=== PATIENT | male | born 1960 | race Two or more races ===

== ENCOUNTER 2024-05-03 13:20 | Emergency (ER) | payer OTHER ==
[~2024-05-03] VITALS: Ht 167.6 cm; Wt 79.0 kg
[~2024-05-03 13:20] MED LIST: ASPIRIN; METOPROLOL; PLAVIX; [UNRECOGNIZED DRUG - OTHER]
[2024-05-03 13:23] VITALS: BP 147/83; PULSE 86; RESP 16; TEMP 99.4; O2SAT 97
[2024-05-03 14:47] LABS: HEMATOCRIT. 42.6 % (42.0-52.0); HEMOGLOBIN. 14.1 g/dL (14.0-18.0); MEAN CORPUSCULAR HEMOGLOBIN 29.4 pg (28.0-32.0); MEAN CORPUSCULAR HGB CONC 33.2 g/dL (31.0-37.0); MEAN CORPUSCULAR VOLUME 88.5 fL (80.0-94.0); MEAN PLATELET VOLUME 8.7 fl (7.4-10.4); PLATELET 226 x1000/uL (130-400); RED BLOOD CELL COUNT 4.81 mill/uL (4.7-6.1); WHITE BLOOD COUNT 7.7 x1000/uL (4.5-11.0)
[2024-05-03 14:50] LABS: CHLORIDE 105 mEq/L (98-107); POTASSIUM 4.6 mEq/L (3.5-5.1); SODIUM 137 mEq/L (136-145)
[2024-05-03 14:51] LABS: CARBON DIOXIDE 25 mEq/L (21-32)
[2024-05-03 14:56] LABS: CREATININE 1.1 mg/dL (0.6-1.3); GLUCOSE 103 mg/dL (70-105); UREA NITROGEN BLOOD 16 mg/dL (9-23)
[2024-05-03 14:58] LABS: ALANINE AMINOTRANSFERASE 22 IU/L (10-49); ALBUMIN 4.5 g/dL (3.2-4.8); ASPARTATE AMINOTRANSFERASE 27 IU/L (<34); BILIRUBIN TOTAL 0.6 mg/dL (0.1-1.0); DIFFERENTIAL COMMENT 1
[2024-05-03 14:59] LABS: PROTEIN TOTAL 7.5 g/dL (6.0-8.3)
[2024-05-03] MEDS ORDERED: GUAI-450 MT (15:51)
[2024-05-03 17:33] LABS: PLATELET ESTIMATE NORMAL
== END 2024-05-03 16:12 | disposition home or self-care (01) ==
LOC: ER 13:20
DX: J06.9 Acute upper respiratory infection, unspecified (principal); Z20.822 Contact with and (suspected) exposure to COVID-19
CPT/HCPCS: 36415; 71045; 80053; 83880; 85025; 87426; 87804; 99284